=== PATIENT | female | born 1940 | race Caucasian/White ===

== ENCOUNTER 2022-09-20 10:22 | Emergency (ER) | payer MEDICARE, OTHER, SELFPAY ==
[2022-09-20 10:33] VITALS: BP 147/94; PULSE 73; RESP 18; TEMP 36.4; O2SAT 97; BMI 18.7
[2022-09-20 11:15] VITALS: BP 147/94; PULSE 73; RESP 18; TEMP 36.4
--- NOTE | 2022-09-20 11:15 | ED.NURSE ---
Bacitracin, non-adherent dressing, gauze roll applied, per MD request. Pt asking to leave. MD informed and agreeable to d/c. Pt aware Rx Augmentin will be sent electronically to [facility] in [place].
--- NOTE | 2022-09-20 11:15 | ED.NURSE ---
Bacitracin, non-adherent dressing, and gauze roll applied to wound, per MD request. Pt asking to leave.
--- NOTE | 2022-09-20 12:44 | ED.GENADULT ---
HPI - General Adult General Date Seen: 09/20/22 Chief complaint: Skin/Abscess/Foreign Body Stated complaint: Cat bite Time Seen by Provider: 09/20/22 10:45 Source: patient History of Present Illness HPI narrative: Patient is an 82-year-old woman who presents with an injury on her left arm. She is taking care of her sister's cat while she is in the hospital, and the cat was startled last night, attacked her left arm in someway. She isn't entirely sure if it is a bite or scratch, but she has a tear on her left arm and so she has considerable pain there. It is not particularly red or swollen. No other injuries or complaints. Cat is up-to-date on immunizations as far she knows. Related Data Previous Rx's Medication Instructions Recorded amoxicillin 875 mg-potassium 1 tab PO BID #10 tabs 09/20/22 clavulanate 125 mg tablet Allergies Allergy/AdvReac Type Severity Reaction Status Date / Time codeine Allergy Verified 09/20/22 10:32 fentanyl Allergy Verified 09/20/22 10:32 PFSH [facility] Social History Smoking Status: Former smoker Do you use any of these nicotine containing products: None Second hand tobacco smoke exposure: No How often do you have a drink containing alcohol: 2-3 times a week How many standard drinks containing alcohol do you have on a typical day: 1 or 2 How often do you have six or more drinks on one occasion: Never AUDIT-C Alcohol total score: 3 Non-prescribed substance use: denies use service: No Exam Narrative: Exam Narrative: Vital signs reviewed In general, an alert, well-appearing elderly woman. Extremities: Examination of the left arm shows a curvilinear laceration, more of a skin tear on the forearm. Bleeding is controlled. Wound is approximated nicely. No surrounding erythema, drainage, or significant swelling. There is some surrounding bruising. Skin: Warm and dry. Well perfused. Const: Vital Signs, click to edit/add: Vital Signs - 24 hr 09/20/22 10:33 09/20/22 11:15 Temperature 97.5 F L 97.5 F L Pulse Rate [Pulse Oximeter] 73 73 Respiratory Rate 18 18 Blood Pressure [Ri ght Upper Arm] 147/94 H 147/94 H Pulse Oximetry 97 Oxygen Delivery Me thod Room Air Documenting provider has reviewed patient's vital signs: yes Course Course Hospital Course: A dressing was applied for by the nurse. Given the uncertainty as to whether this is a bite or a scratch, I am just going to cover her with Augmentin. Return for worsening signs of infection. Otherwise, anticipate this will heal well. Primary care follow-up for concerns. Vital Signs Vital signs: Initial Vital Signs Temperature 97.5 F L 09/20/22 10:33 Temperature Source Temporal Artery Scan 09/20/22 10:33 Pulse Rate 73 09/20/22 10:33 Pulse Rhythm 09/20/22 10:33 Respiratory Rate 18 09/20/22 10:33 Blood Pressure 147/94 H 09/20/22 10:33 Blood Pressure Mean 111 09/20/22 10:33 Blood Pressure Position Sitting 09/20/22 10:33 Pulse Oximetry 97 09/20/22 10:33 Oxygen Delivery Method 09/20/22 10:33 Vital Signs Temperature 97.5 F L 09/20/22 10:33 Pulse Rate 73 09/20/22 10:33 Respiratory Rate 18 09/20/22 10:33 Blood Pressure 147/94 H 09/20/22 10:33 Pulse Oximetry 97 09/20/22 10:33 Oxygen Delivery Method 09/20/22 10:33 Temperature 97.5 F L 09/20/22 11:15 Pulse Rate 73 09/20/22 11:15 Respiratory Rate 18 09/20/22 11:15 Blood Pressure 147/94 H 09/20/22 11:15 Pulse Oximetry 97 09/20/22 10:33 Oxygen Delivery Method 09/20/22 10:33 Discharge Plan Discharge Clinical Impression: Bite by animal Patient Disposition: Home, Self-Care Condition: Stable Prescriptions: New amoxicillin-pot clavulanate 875-125 mg tablet 1 tab PO BID Qty: 10 0RF Follow Up/Referrals: Alejandro Austin MD [Primary Care Provider] - Stand Alone Forms: MyHealth Info Instructions Discharge Comment: Left at 1115.
== END 2022-09-20 11:29 | disposition home or self-care (01) ==
PROVIDERS: Emergency Provider Emergency Medicine; PCP Family Medicine
DX: S51.812A Laceration without foreign body of left forearm, initial encounter (principal); W55.01XA Bitten by cat, initial encounter
CPT/HCPCS: 99283

== ENCOUNTER 2023-07-25 13:56 | Emergency (ER) | payer MEDICARE, OTHER, SELFPAY ==
[2023-07-25] VITALS (26 sets, daily range): BP systolic 131–156; BP diastolic 70–98; PULSE 54–88; RESP 26; TEMP 36.6; O2SAT 91–96; BMI 17.4
--- NOTE | 2023-07-25 14:06 | ED_ITS ---
HPI - SOB/Dyspnea General Time Seen by Provider: 14:06 Date Seen: 07/25/23 Chief Complaint: Shortness of Breath/Dyspnea Stated Complaint: Difficulty breathing after broken ribs Time Seen by Provider: 07/25/23 13:57 Source: patient, RN notes reviewed and old records reviewed Mode of arrival: ambulatory Limitations: no limitations History of Present Illness HPI Narrative: 82-year-old female who comes in today with shortness of breath. Patient notes shortness of breath for the last 7 weeks after she fell and was seen in outside facility, diagnosed with broken ribs but no admission and no chest tube placed. Patient notes since then she has felt short of breath with cough. She was seen in clinic and was prescribed an inhaler which does help with symptoms but she has had persistent cough and shortness of breath so she came to the emergency department today. No chest pain. No fevers, no lower extremity swelling. 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 Related Data Home Medications Medication Instructions Recorded Confirmed levothyroxine 88 mcg tablet 88 mcg PO DAILY 07/25/23 07/25/23 Previous Rx's Medication Instructions Recorded amoxicillin 875 mg-potassium 1 tab PO BID #10 tabs 09/20/22 clavulanate 125 mg tablet benzonatate 200 mg capsule 200 mg PO TID PRN cough #14 caps 07/25/23 prednisone 20 mg tablet 20 mg PO BID #10 tabs 07/25/23 Allergies Allergy/AdvReac Type Severity Reaction Status Date / Time codeine Allergy Verified 09/20/22 10:32 fentanyl Allergy Verified 09/20/22 10:32 eggs Allergy Uncoded 07/25/23 14:00 Review of Systems Status of ROS: Reports: 10 or more systems reviewed and unremarkable except as noted in History and below [facility] Social History Smoking Status: Former smoker Do you use any of these nicotine containing products: None Second hand tobacco smoke exposure: No How often do you have a drink containing alcohol: 2-3 times a week How many standard drinks containing alcohol do you have on a typical day: 1 or 2 How often do you have six or more drinks on one occasion: Never AUDIT-C Alcohol total score: 3 Non-prescribed substance use: denies use service: No Exam Narrative: Exam Narrative: General: Well-developed and well-nourished, no acute distress Head: Atraumatic and normocephalic Eyes: Pupils are equal reactive, extraocular motions intact, conjunctiva clear ENT: External nose and ears are normal, posterior pharynx without erythema or exudate Neck: No midline cervical tenderness, full spontaneous range of motion the neck, trachea midline, no adenopathy Heart: Regular rate and rhythm no murmurs or thrills Lungs: Trace bilateral crackles with expiratory wheezes on the left Abdomen: Soft, nontender, nondistended with active bowel sounds Musculoskeletal: No tenderness, deformity, or edema Neurologic: Awake, alert, and oriented x3, no gross focal neurologic deficits, cranial nerves intact as tested Psych: Mood and affect are appropriate Skin: No rashes Const: Vital Signs, click to edit/add: Vital Signs - 24 hr 07/25/23 14:01 07/25/23 14:18 07/25/23 14:30 Temperature 98 F Pulse Rate 66 88 Pulse Rate [Pulse Oximeter] 62 Respiratory Rate 26 H Blood Pressure Blood Pressure [Ri ght Upper Arm] 139/72 Pulse Oximetry 94 93 94 Oxygen Delivery Me thod Room Air 07/25/23 14:32 07/25/23 14:45 07/25/23 15:00 Temperature Pulse Rate 54 L 69 Pulse Rate [Pulse Oximeter] Respiratory Rate Blood Pressure 156/98 H Blood Pressure [Ri ght Upper Arm] Pulse Oximetry 94 93 94 Oxygen Delivery Me thod 07/25/23 15:02 07/25/23 15:03 07/25/23 15:15 Temperature Pulse Rate 61 76 69 Pulse Rate [Pulse Oximeter] Respiratory Rate Blood Pressure 146/80 H Blood Pressure [Ri ght Upper Arm] Pulse Oximetry 95 94 94 Oxygen Delivery Me thod 07/25/23 15:30 07/25/23 15:32 07/25/23 15:45 Temperature Pulse Rate 70 74 69 Pulse Rate [Pulse Oximeter] Respiratory Rate Blood Pressure 138/79 Blood Pressure [Ri ght Upper Arm] Pulse Oximetry 93 93 93 Oxygen Delivery Me thod 07/25/23 16:00 07/25/23 16:03 07/25/23 16:04 Temperature Pulse Rate 79 68 78 Pulse Rate [Pulse Oximeter] Respiratory Rate Blood Pressure 155/93 H Blood Pressure [Ri ght Upper Arm] Pulse Oximetry 92 94 96 Oxygen Delivery Me thod 07/25/23 16:17 07/25/23 16:31 07/25/23 16:33 Temperature Pulse Rate 71 88 79 Pulse Rate [Pulse Oximeter] Respiratory Rate Blood Pressure 131/75 Blood Pressure [Ri ght Upper Arm] Pulse Oximetry 92 96 95 Oxygen Delivery Me thod 07/25/23 16:34 07/25/23 16:45 07/25/23 17:00 Temperature Pulse Rate 83 84 87 Pulse Rate [Pulse Oximeter] Respiratory Rate Blood Pressure Blood Pressure [Ri ght Upper Arm] Pulse Oximetry 96 94 95 Oxygen Delivery Me thod 07/25/23 17:04 07/25/23 17:05 07/25/23 17:15 Temperature Pulse Rate 85 82 84 Pulse Rate [Pulse Oximeter] Respiratory Rate Blood Pressure 155/70 H Blood Pressure [Ri ght Upper Arm] Pulse Oximetry 92 93 92 Oxygen Delivery Me thod 07/25/23 17:30 07/25/23 17:33 Temperature Pulse Rate 71 Pulse Rate [Pulse Oximeter] Respiratory Rate Blood Pressure 142/98 H Blood Pressure [Ri ght Upper Arm] Pulse Oximetry 91 Oxygen Delivery Me thod Course Course ED Course: Patient seen examined, prior records reviewed. Patient presents today with shortness of breath and cough that she has had since sustained some broken ribs. On exam here she speaks in full sentences, no respiratory distress. Breath sounds are present in both lungs, some wheezes more prominent on the left as well as some trace crackles in lungs bilaterally. Concern for possible pneumothorax or pleural effusion given history of trauma, given ongoing symptoms consider pulmonary embolism as well. Empyema is less likely as patient is afebrile and has no chest pain. Labs and CT PE study are ordered. Reevaluation(s) Time of Reevaluation #1: 16:12 Reevaluation #1: Labs independently interpreted by me with normal white blood cell count, normal hemoglobin reassuring basic panel, BNP and bicarbonate are pending. CT chest independently interpreted by me does not demonstrate any central pulmonary emboli, no infiltrate or effusion, old rib fractures noted on the left. Patient is stable for discharge with continued nebulizer treatment and also be started on prednisone. Vital Signs Vital signs: Initial Vital Signs Temperature 98 F 07/25/23 14:01 Temperature Source Temporal Artery Scan 07/25/23 14:01 Pulse Rate 62 07/25/23 14:01 Respiratory Rate 26 H 07/25/23 14:01 Blood Pressure 139/72 07/25/23 14:01 Blood Pressure Mean 94 07/25/23 14:01 Blood Pressure Position Supine 07/25/23 14:01 Pulse Oximetry 94 07/25/23 14:01 Oxygen Delivery Method Room Air 07/25/23 14:01 Vital Signs Temperature 98 F 07/25/23 14:01 Pulse Rate 62 07/25/23 14:01 Respiratory Rate 26 H 07/25/23 14:01 Blood Pressure 139/72 07/25/23 14:01 Pulse Oximetry 94 07/25/23 14:01 Oxygen Delivery Method Room Air 07/25/23 14:01 Temperature 98 F 07/25/23 14:01 Pulse Rate 71 07/25/23 17:30 Respiratory Rate 26 H 07/25/23 14:01 Blood Pressure 142/98 H 07/25/23 17:33 Pulse Oximetry 91 07/25/23 17:30 Oxygen Delivery Method Room Air 07/25/23 14:01 MDM - SOB/Dyspnea Lab Data Labs: Lab Results 07/25/23 Range/Units 14:24 WBC 8.33 (4.50-11.00) K/uL RBC 5.41 H (4.00-5.20) m/uL Hgb 15.0 (12.0-16.0) gm/dL Hct 46.1 (33.0-51.0) % MCV 85 (80-100) fL MCH 28 (26-34) pg MCHC 33 (32-36) gm/dL RDW Coeff of Heydi 14.5 (11.5-15.5) % Plt Count 275 (140-440) K/uL Neut % (Auto) 56.3 (42.0-72.0) % Lymph % (Auto) 26.9 (20-44) % [place] % (Auto) 10.8 (0.0-11.0) % Eos % (Auto) 5.3 (0.0-7.0) % Baso % (Auto) 0.6 (0.0-3.0) % Neut # (Auto) 4.69 (1.7-7.0) K/uL Lymph # (Auto) 2.24 (0.90-2.90) K/uL [place] # (Auto) 0.90 (0.00-0.90) K/UL Eos # (Auto) 0.44 (0.00-0.50) K/uL Baso # (Auto) 0.05 (0.00-0.30) K/uL Abs Immat Gran (auto) 0.01 (0.00-0.30) K/uL Imm/Tot Granulo (auto) 0.1 % Sodium 141 (135-149) mmol/L Potassium 3.3 L (3.6-5.1) mmol/L Chloride 104 (96-114) mmol/L Carbon Dioxide 25 (20-32) mmol/L Anion Gap 12 (7-15) mEq/L BUN 10 (7-30) mg/dL Creatinine 0.6 (0.5-1.5) mg/dL Estimated Creat Clear 33.54 Estimated GFR 90 ml/min Glucose 107 (60-115) mg/dL Calcium 7.9 L (8.4-10.6) mg/dL Magnesium 1.8 (1.5-2.6) mg/dL NT-Pro-B Natriuret Pep 513 pg/mL Discharge Plan Discharge Clinical Impression: Acute dyspnea, Cough Patient Disposition: Home, Self-Care Condition: Stable Instructions: How to Use a Metered-Dose Inhaler (DC), Wheezing (ED) Additional Instructions: Use albuterol every 4 hours as needed for wheezing or shortness of breath Take prednisone as prescribed Take Tessalon Perles as needed for cough Follow-up with your regular doctor next week Activity Level: No Restrictions Discharge Diet: Regular Prescriptions: New prednisone 20 mg tablet 20 mg PO BID Qty: 10 0RF benzonatate 200 mg capsule 200 mg PO TID PRN (Reason: cough) Qty: 14 0RF No Action amoxicillin-pot clavulanate 875-125 mg tablet 1 tab PO BID Qty: 10 0RF levothyroxine 88 mcg tablet 88 mcg PO DAILY Follow Up/Referrals: Alejandro Austin MD [Primary Care Provider] - Stand Alone Forms: MyHealth Info Instructions
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
[2023-07-25 14:37] LABS: Basophils Absolute Auto 0.05 K/uL (0.00-0.30); Basophils Percent Auto 0.6 % (0.0-3.0); Eosinophils Absolute Auto 0.44 K/uL (0.00-0.50); Eosinophils Percent Auto 5.3 % (0.0-7.0); Hematocrit 46.1 % (33.0-51.0); Immature Granulocytes Abs Auto 0.01 K/uL (0.00-0.30); Immature Granulocytes Pct Auto 0.1 %; Lymphocytes Absolute Auto 2.24 K/uL (0.90-2.90); Lymphocytes Percent Auto 26.9 % (20-44); Mean Corpuscular HGB Conc 33 gm/dL (32-36); Mean Corpuscular Hemoglobin 28 pg (26-34); Mean Corpuscular Volume 85 fL (80-100); Monocytes Percent Auto 10.8 % (0.0-11.0); Neutrophils Absolute Auto 4.69 K/uL (1.7-7.0); Neutrophils Percent Auto 56.3 % (42.0-72.0); Platelet Count* 275 K/uL (140-440); RDW Coefficient of Variation % 14.5 % (11.5-15.5); Red Blood Count 5.41 m/uL (4.00-5.20); White Blood Count* 8.33 K/uL (4.50-11.00)
[2023-07-25 14:39] LABS: Slide Review Reflex No
[2023-07-25 14:52] LABS: Chloride* 104 mmol/L (96-114); Potassium* 3.3 mmol/L (3.6-5.1); Sodium* 141 mmol/L (135-149)
[2023-07-25 14:55] LABS: Blood Urea Nitrogen* 10 mg/dL (7-30); Calcium* 7.9 mg/dL (8.4-10.6); Creatinine* 0.6 mg/dL (0.5-1.5); Est. Creatinine Clearance* 33.54; Estimated Glomerular Filt Rate 90 ml/min; Glucose* 107 mg/dL (60-115); Magnesium* 1.8 mg/dL (1.5-2.6)
[2023-07-25] MEDS: IPRAT-ALBUT 0.5-2.5 MG/3 ML NEB 1 NEB IH (15:45)
[2023-07-25 16:32] LABS: NT Pro B Type NatriureticPept* 513 pg/mL
[2023-07-25] MEDS: METHYLPREDNISOLONE SOD SUCC 62.5 MG/ML (125) 125 MG IVP (16:44)
[2023-07-25 17:15] LABS: Anion Gap 12 mEq/L (7-15); Carbon Dioxide* 25 mmol/L (20-32)
--- NOTE | 2023-07-26 11:03 | ED.NURSE ---
Pt stated her medications did not go to her pharmacy yesterday. Per pt request, meds tesslon pearls and prednisone called to [facility] in [place].
== END 2023-07-25 17:55 | disposition home or self-care (01) ==
PROVIDERS: Emergency Provider Family Medicine; PCP Family Medicine
DX: R06.00 Dyspnea, unspecified (principal); R05.9 Cough, unspecified
CPT/HCPCS: 36415; 71275; 80048; 83735; 83880; 85025; 93005; 94640; 96374; 99284; 99285; J2930; Q9967

== ENCOUNTER 2023-08-13 11:50 | Outpatient (CLI) | payer MEDICARE, OTHER, SELFPAY | END 2023-08-13 11:51 | disposition home or self-care (01) | PROVIDERS: PCP Family Medicine; Visit Provider Family Medicine | DX: Z00.00 Encounter for general adult medical examination without abnormal findings (principal); I10 Essential (primary) hypertension; R53.83 Other fatigue; E55.9 Vitamin D deficiency, unspecified; Z85.850 Personal history of malignant neoplasm of thyroid; Z86.39 Personal history of other endocrine, nutritional and metabolic disease; Z13.6 Encounter for screening for cardiovascular disorders | CPT/HCPCS: 80053; 80061; 82248; 82306; 84443 ==

== ENCOUNTER 2023-09-01 18:43 | Emergency (ER) | payer MEDICARE, OTHER, SELFPAY ==
[2023-09-01 18:49] VITALS: BP 135/73; PULSE 70; RESP 18; TEMP 36.7; O2SAT 93; BMI 18.1
--- NOTE | 2023-09-01 19:01 | ED_ITS ---
HPI - SOB/Dyspnea General Chief Complaint: Shortness of Breath/Dyspnea Stated Complaint: shortness of breath, both arms went numb Time Seen by Provider: 09/01/23 19:01 Source: patient, RN notes reviewed and old records reviewed Mode of arrival: ambulatory Limitations: no limitations History of Present Illness HPI Narrative: Adela is a very pleasant 83-year-old female with history of COPD, breast cancer, thyroid cancer as well as hypothyroidism who comes to the emergency room for evaluation regarding arm numbness and chest pain. Patient notes that 2 days ago she was sitting and had the onset of many minutes a bilateral arm numbness and was unable to lift her arms. This was not associated with speech difficulty chest pain or any other abnormality. This gradually resolved. However, tonight this occurred again and lasted about 45 seconds. Chest pain followed and patient noted that she has been dealing with chronic shortness of breath since she had rib fractures in June. She notes no unusual fever or cough or production. She does feels like she is short of breath. She is not on any blood thinners and denies any calf tenderness. She has not had heart problems in the past. She has not had a history of stroke. She does not take any blood thinners. At this time all of her symptoms have resolved. Related Data Previous Rx's Medication Instructions Recorded levothyroxine 88 mcg tablet 88 mcg PO DAILY #90 tabs 08/13/23 cholecalciferol (vitamin D3) 125 125 mcg PO QDAY #90 caps 08/14/23 mcg (5,000 unit) capsule albuterol sulfate 2.5 mg/3 mL 2.5 mg (3 mL) inhalation Q8H PRN 08/22/23 (0.083 %) solution for nebulization wheezing #90 mL Allergies Allergy/AdvReac Type Severity Reaction Status Date / Time cefdinir Allergy Severe Angioedema Verified 08/13/23 11:26 fentanyl Allergy Severe Anaphylaxis Verified 08/13/23 11:26 codeine Allergy Unknown Dizziness Verified 08/13/23 11:26 Egg Derived Allergy Unknown Hives Verified 08/13/23 11:26 Review of Systems Status of ROS: Reports: 10 or more systems reviewed and unremarkable except as noted in History and below Const: Denies: fever or chills ENMT: Reports: neck pain (Chronic and not worsening.); Denies: throat swelling or hoarseness Cardio: Reports: chest pain and shortness of breath with exertion; Denies: palpitations, edema, swelling of feet/ankles or lightheadedness Resp: Reports: shortness of breath; Denies: cough or wheezing GI: Denies: abdominal pain, nausea, vomiting or diarrhea : Denies: painful urination Musculo: Reports: neck pain (Chronic and not worsening.); Denies: back pain, extremity pain or extremity swelling Integ/Breast: Denies: rash Neuro: Reports: numbness in extremities (Transient) and weakness in extremities (Transient); Denies: headache Allergy/Immuno: Denies: throat swelling or wheezing PFSH PFSH Medical History COPD with chronic bronchitis ?J44.89 - Other specified chronic obstructive pulmonary disease (ICD-10) Vitamin D deficiency ?E55.9 - Vitamin D deficiency, unspecified (ICD-10) Cigarette smoker ?F17.210 - Nicotine dependence, cigarettes, uncomplicated (ICD-10) Polyarthralgia ?M25.50 - Pain in unspecified joint (ICD-10) Chronic left shoulder pain ?M25.512 - Pain in left shoulder (ICD-10) ?G89.29 - Other chronic pain (ICD-10) History of breast cancer (2000) ?Z85.3 - Personal history of malignant neoplasm of breast (ICD-10) History of gout ?Z87.39 - Personal history of other diseases of the musculoskeletal system and connective tissue (ICD-10) Hypertension ?I10 - Essential (primary) hypertension (ICD-10) Anxiety ?F41.9 - Anxiety disorder, unspecified (ICD-10) History of thyroid cancer (~2018) ?Z85.850 - Personal history of malignant neoplasm of thyroid (ICD-10) Protein calorie malnutrition (~08/13/23) ?E46 - Unspecified protein-calorie malnutrition (ICD-10) Sensorineural hearing loss ?H90.5 - Unspecified sensorineural hearing loss (ICD-10) History of fall ?Z91.81 - History of falling (ICD-10) Surgical History History of total thyroidectomy (01/20/18) ?E89.0 - Postprocedural hypothyroidism (ICD-10) History of lumpectomy (2000) ?Z98.890 - Other specified postprocedural states (ICD-10) Family History Other No family history of breast cancer Social History Narrative: 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,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, 3 adult 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 Continues to smoke few cigarettes a day, over 40 pack years Drinks 4 alcoholic drinks a week No formal exercise but active lifestyle Smoking Status: Former smoker Do you use any of these nicotine containing products: None Second hand tobacco smoke exposure: No How often do you have a drink containing alcohol: 2-3 times a week How many standard drinks containing alcohol do you have on a typical day: 1 or 2 How often do you have six or more drinks on one occasion: Never AUDIT-C Alcohol total score: 3 Non-prescribed substance use: denies use Little interest or pleasure in doing things: not at all Feeling down, depressed, or hopeless: not at all service: No Exam Narrative: Exam Narrative: Adela is alert and oriented. She is not in any acute distress at this time. External ears eyes nose clear. Head is atraumatic. Heart with a irregular rhythm that is regular. Lungs with crackles in the bases. They do partially clear with deep inspiration. Moving all extremities. Vision is intact. NIH SS 0 Upper extremity strength and motor intact. DTR 1+ on the right 2+ on the left. I did is Spurling's maneuver and patient has no increased arms symptoms bilaterally. Const: Vital Signs, click to edit/add: Vital Signs - 24 hr 09/01/23 18:49 09/01/23 23:54 Temperature 98.1 F Pulse Rate [Pulse Oximeter] 70 76 Respiratory Rate 18 16 Blood Pressure [Le ft Upper Arm] 135/73 102/78 Pulse Oximetry 93 99 Oxygen Delivery Me thod Room Air Room Air Documenting provider has reviewed patient's vital signs: yes Course Course ED Course: At this time differential diagnosis includes but is not limited to TIA, atrial fibrillation, pneumothorax, acute coronary event, COPD exacerbation. Will place IV and do CT of the head, head and neck angio as well as chest x-ray. EKG, troponin and other blood work to include CBC, comprehensive panel, CRP and D-di maida. Patient realizes that this will be an extensive workup and is willing to stay. Reevaluation(s) Reevaluation #1: Patient while sitting in room 4 does not wish to moved to a room and laid down. She states that her shortness of breath is much better. Initial troponin is negative. EKG shows a sinus arrhythmia at a rate of 60. No acute ST or T-wave changes are noted. I have ordered 2nd set of cardiac enzymes. Vital Signs Vital signs: Initial Vital Signs Temperature 98.1 F 09/01/23 18:49 Temperature Source Temporal Artery Scan 09/01/23 18:49 Pulse Rate 70 09/01/23 18:49 Pulse Rhythm Regular 09/01/23 18:49 Respiratory Rate 18 09/01/23 18:49 Blood Pressure 135/73 09/01/23 18:49 Blood Pressure Mean 93 09/01/23 18:49 Blood Pressure Position Sitting 09/01/23 18:49 Pulse Oximetry 93 09/01/23 18:49 Oxygen Delivery Method Room Air 09/01/23 18:49 Vital Signs Temperature 98.1 F 09/01/23 18:49 Pulse Rate 70 09/01/23 18:49 Respiratory Rate 18 09/01/23 18:49 Blood Pressure 135/73 09/01/23 18:49 Pulse Oximetry 93 09/01/23 18:49 Oxygen Delivery Method Room Air 09/01/23 18:49 Temperature 98.1 F 09/01/23 18:49 Pulse Rate 76 09/01/23 23:54 Respiratory Rate 16 09/01/23 23:54 Blood Pressure 102/78 09/01/23 23:54 Pulse Oximetry 99 09/01/23 23:54 Oxygen Delivery Method Room Air 09/01/23 23:54 Medications Administered Medications: Discontinued Medications Generic Name Dose Route Start Last Admin Trade Name Freq PRN Reason Stop Dose Admin Aspirin 324 mg 09/01/23 19:15 09/01/23 22:32 Aspirin 81 Mg Tab.Chew PO 09/01/23 19:16 324 mg ONCE ONE Administration MDM - SOB/Dyspnea MDM Narrative Medical decision making narrative: 1. Bilateral arm numbness-I did speak with Neurology and with reassuring head CT, head and neck angio my neurological consult physician did not feel that this was TIA. Patient has been given aspirin 324 mg p.o.. 2. Chest pain-resolved upon arrival. Troponin negative x2. EKG initially abnormal but was found subsequent rhythm strip shows sinus rhythm. I did speak to Cardiology and they were able to view this. They do suggest outpatient echocardiogram, follow-up with Cardiology and potential CTA. Patient has been pain-free in the emergency room. 3. Chronic shortness of breath D-dimer is negative and chest x-ray reassuring. Oxygen levels are appropriate as well. No evidence of fluid retention. Recommend follow-up with primary MD as this is likely COPD. It does not appear to be worsening lately. 4. Disposition-home at this time. Return for any worsening symptoms. Continue baby aspirin 81 mg daily. Prior to discharge patient notes she is suddenly sneezing and has had some coughing. Oxygen levels are 99% and she is not tachycardic. Will triple swab her prior to departure. She does not have to wait for those results. Medical Records Attestation: I reviewed the patient's medical records. Lab Data Attestation: I reviewed the patient's lab results. Labs: Lab Results 09/01/23 09/01/23 Range/Units 19:20 19:27 WBC 7.32 (4.50-11.00) K/uL RBC 5.06 (4.00-5.20) m/uL Hgb 14.2 (12.0-16.0) gm/dL Hct 42.6 (33.0-51.0) % MCV 84 (80-100) fL MCH 28 (26-34) pg MCHC 33 (32-36) gm/dL RDW Coeff of Heydi 13.6 (11.5-15.5) % Plt Count 306 (140-440) K/uL Neut % (Auto) 55.7 (42.0-72.0) % Lymph % (Auto) 27.6 (20-44) % Kent % (Auto) 9.8 (0.0-11.0) % Eos % (Auto) 6.0 (0.0-7.0) % Baso % (Auto) 0.5 (0.0-3.0) % Neut # (Auto) 4.07 (1.7-7.0) K/uL Lymph # (Auto) 2.02 (0.90-2.90) K/uL Kent # (Auto) 0.70 (0.00-0.90) K/UL Eos # (Auto) 0.44 (0.00-0.50) K/uL Baso # (Auto) 0.04 (0.00-0.30) K/uL Abs Immat Gran (auto) 0.03 (0.00-0.30) K/uL Imm/Tot Granulo (auto) 0.4 % D-Dimer Quant (PE/DVT) < 0.27 (0.00-0.50) ug/ml Sodium 137 (135-149) mmol/L Potassium 3.8 (3.6-5.1) mmol/L Chloride 100 (96-114) mmol/L Carbon Dioxide 26 (20-32) mmol/L Anion Gap 11 (7-15) mEq/L BUN 10 (7-30) mg/dL Creatinine 0.6 (0.5-1.5) mg/dL Estimated Creat Clear 34.19 Estimated GFR 89 ml/min Glucose 110 (60-115) mg/dL Calcium 8.4 (8.4-10.6) mg/dL Total Bilirubin 1.4 (0.1-1.5) mg/dL AST 31 (12-35) U/L ALT 26 (4-35) U/L Alkaline Phosphatase 64 (40-150) U/L C-Reactive Protein 0.8 (0.5-1.0) mg/dL Total Protein 7.2 (6.0-8.3) g/dL Albumin 4.5 (3.3-5.0) g/dL POC Troponin I 0.01 (0.01-0.04) ng/ml Imaging Data CT scan - head: Attestation: I have reviewed the pertinent imaging results. My impression: Chronic changes Radiologist's impression: eriventricular areas of low attenuation, likely due to chronic small vessel ischemic changes. Generalized volume loss. Atherosclerosis. No intracranial hemorrhage. No discrete mass or mass effect. There is no midline shift. The basilar cisterns are patent. No hydrocephalus. The kasper-white matter interface is otherwise preserved. No acute osseous abnormality. No extracalvarial soft tissue abnormality. The mastoid air cells are clear. Partial opacification of the right maxillary sinus. The visualized portions of the orbits and globes are unremarkable. IMPRESSION: No acute intracranial process per unenhanced head CT. Head and neck angio: Attestation: I have reviewed the pertinent imaging results. Radiologist's impression: FINDINGS: There is no significant carotid artery stenosis or dissection. There is no significant vertebral artery stenosis or dissection. The soft tissues of the neck are within normal limits. Advanced degenerative changes are noted in the cervical spine. IMPRESSION: No significant carotid or vertebral artery stenosis or dissection. Chest x-ray: Attestation: I have reviewed the pertinent imaging results. My impression: No obvious infiltrates or pneumothoraces Radiologist's impression: Mild fibrotic changes. Postop changes to the right axilla. IMPRESSION: No acute findings. ECG Data Attestation: I personally reviewed and interpreted this ECG as follows: ECG interpretation date: 09/01/23 ECG interpretation time: 21:15 Interpretation: EKG by my review shows no evidence of acute ST or T-wave changes. Heart rate is 60. Patient has a regularly irregular rhythm. There are 2 systole is with the 2nd T-wave being a bifid. I did speak with Cardiology in regards to this. I subsequent rhythm strip shows normal sinus rhythm with totally normal morphology and no pauses. Discharge Plan Discharge Clinical Impression: Atypical chest pain, Bilateral arm weakness, Abnormal ECG Patient Disposition: Home, Self-Care Condition: Improved Additional Instructions: The neurologist does not think which you experience tonight was a TIA. However, I do not have an explanation for your arm weakness. It may be related to something going on with your heart. You have tested negative for heart attack tonight. Your 1st EKG was not entirely normal. Subsequently your heart is now in a normal rhythm. 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 They would like you to have an echocardiogram scheduled with follow-up with Cardiology. They may do a special test called a CTA of your heart at a later time. They would like you to continue a baby aspirin every day 81 mg. Return to the emergency room as needed. Prescriptions: No Action levothyroxine 88 mcg tablet 88 mcg PO DAILY Qty: 90 3RF cholecalciferol (vitamin D3) 125 mcg (5,000 unit) capsule 125 mcg PO QDAY Qty: 90 1RF albuterol sulfate 2.5 mg /3 mL (0.083 %) solution for nebulization 2.5 mg inhalation Q8H PRN (Reason: wheezing) Qty: 90 2RF Follow Up/Referrals: Kinsey Zamudio MD [Primary Care Provider] - Stand Alone Forms: [facility] [employer] Info Instructions
--- NOTE | 2023-09-01 19:13 | CRLHL7_ITS ---
For Patients: As a result of the Century Cures Act, medical imaging exams and procedure reports are released immediately into your electronic medical record. You may view this report before your referring provider. If you have questions, please contact your health care provider. INDICATION: .SOB, bilateral arm numbness, 2 episodes over the last 2 days TECHNIQUE: Head CT without contrast. COMPARISON: None. FINDINGS: Periventricular areas of low attenuation, likely due to chronic small vessel ischemic changes. Generalized volume loss. Atherosclerosis. No intracranial hemorrhage. No discrete mass or mass effect. There is no midline shift. The basilar cisterns are patent. No hydrocephalus. The kasper-white matter interface is otherwise preserved. No acute osseous abnormality. No extracalvarial soft tissue abnormality. The mastoid air cells are clear. Partial opacification of the right maxillary sinus. The visualized portions of the orbits and globes are unremarkable. IMPRESSION: No acute intracranial process per unenhanced head CT. Please note that all CT scans at this facility use dose modulation, iterative reconstruction, and/or weight-based dosing when appropriate to reduce radiation dose to as low as reasonably achievable. Dictated by Dimitri Marroquin MD @ 09/01/2023 9:07:04 PM (Electronically Signed)
--- NOTE | 2023-09-01 19:13 | CRLHL7_ITS ---
For Patients: As a result of the Cures Act, medical imaging exams and procedure reports are released immediately into your electronic medical record. You may view this report before your referring provider. If you have questions, please contact your health care provider. INDICATION: Shortness of breath TECHNIQUE: Chest 1 view COMPARISON: None FINDINGS: Mild fibrotic changes. Postop changes to the right axilla. IMPRESSION: No acute findings. Dictated by Dimitri Desai MD @ 09/01/2023 9:38:09 PM (Electronically Signed)
--- NOTE | 2023-09-01 19:13 | CRLHL7_ITS ---
For Patients: As a result of the Century Cures Act, medical imaging exams and procedure reports are released immediately into your electronic medical record. You may view this report before your referring provider. If you have questions, please contact your health care provider. INDICATION: Bilateral arm numbness. TECHNIQUE: CTA neck with contrast bolus tracking, 3D angiographic rendering using maximum intensity projection (MIP) and images permanently archived. FINDINGS: There is no significant carotid artery stenosis or dissection. There is no significant vertebral artery stenosis or dissection. The soft tissues of the neck are within normal limits. Advanced degenerative changes are noted in the cervical spine. IMPRESSION: No significant carotid or vertebral artery stenosis or dissection. Please note that all CT scans at this facility use dose modulation, iterative reconstruction, and/or weight-based dosing when appropriate to reduce radiation dose to as low as reasonably achievable. Dictated by Alexander Clement MD @ 09/01/2023 10:19:43 PM (Electronically Signed)
--- NOTE | 2023-09-01 19:13 | CRLHL7_ITS ---
For Patients: As a result of the Century Cures Act, medical imaging exams and procedure reports are released immediately into your electronic medical record. You may view this report before your referring provider. If you have questions, please contact your health care provider. INDICATION: Bilateral arm numbness. TECHNIQUE: CTA head with contrast bolus tracking, 3D angiographic rendering using maximum intensity projection (MIP) and images permanently archived. FINDINGS: There is scattered intracranial atherosclerotic disease. There is normal opacification of the intracranial vasculature. There is no large vessel occlusion. No aneurysm is identified. IMPRESSION: No large vessel occlusion. Please note that all CT scans at this facility use dose modulation, iterative reconstruction, and/or weight-based dosing when appropriate to reduce radiation dose to as low as reasonably achievable. Dictated by Alexander Clement MD @ 09/01/2023 10:18:20 PM (Electronically Signed)
[2023-09-01 19:37] LABS: Troponin, Point-of-Care* 0.01 ng/ml (0.01-0.04)
[2023-09-01 19:39] LABS: Basophils Absolute Auto 0.04 K/uL (0.00-0.30); Basophils Percent Auto 0.5 % (0.0-3.0); Eosinophils Absolute Auto 0.44 K/uL (0.00-0.50); Hematocrit 42.6 % (33.0-51.0); Hemoglobin* 14.2 gm/dL (12.0-16.0); Immature Granulocytes Abs Auto 0.03 K/uL (0.00-0.30); Immature Granulocytes Pct Auto 0.4 %; Lymphocytes Absolute Auto 2.02 K/uL (0.90-2.90); Lymphocytes Percent Auto 27.6 % (20-44); Mean Corpuscular HGB Conc 33 gm/dL (32-36); Mean Corpuscular Hemoglobin 28 pg (26-34); Mean Corpuscular Volume 84 fL (80-100); Monocytes Percent Auto 9.8 % (0.0-11.0); Neutrophils Absolute Auto 4.07 K/uL (1.7-7.0); Neutrophils Percent Auto 55.7 % (42.0-72.0); Platelet Count* 306 K/uL (140-440); RDW Coefficient of Variation % 13.6 % (11.5-15.5); Red Blood Count 5.06 m/uL (4.00-5.20); White Blood Count* 7.32 K/uL (4.50-11.00)
[2023-09-01 19:44] LABS: Albumin* 4.5 g/dL (3.3-5.0)
[2023-09-01 19:45] LABS: Chloride* 100 mmol/L (96-114); Potassium* 3.8 mmol/L (3.6-5.1); Sodium* 137 mmol/L (135-149)
[2023-09-01 19:47] LABS: Bilirubin Total* 1.4 mg/dL (0.1-1.5); Creatinine* 0.6 mg/dL (0.5-1.5); Est. Creatinine Clearance* 34.19; Estimated Glomerular Filt Rate 89 ml/min; Slide Review Reflex No
[2023-09-01 19:48] LABS: Alanine Aminotransferase* 26 U/L (4-35); Alkaline Phosphatase* 64 U/L (40-150); Anion Gap 11 mEq/L (7-15); Aspartate Amino Transferase* 31 U/L (12-35); Blood Urea Nitrogen* 10 mg/dL (7-30); Calcium* 8.4 mg/dL (8.4-10.6); Carbon Dioxide* 26 mmol/L (20-32); Glucose* 110 mg/dL (60-115); Total Protein* 7.2 g/dL (6.0-8.3)
[2023-09-01 19:51] LABS: C Reactive Protein* 0.8 mg/dL (0.5-1.0)
[2023-09-01 19:52] LABS: D Dimer Quantitative* < 0.27 ug/ml (0.00-0.50)
[2023-09-01] MEDS: ASPIRIN 81 MG TAB.CHEW 324 MG PO (22:32)
[2023-09-01 23:54] VITALS: BP 102/78; PULSE 76; RESP 16; O2SAT 99
--- NOTE | 2023-09-02 00:22 | PC.NURSE ---
patient DC ambulatory and alert. no questions about DC instructions.
[2023-09-02 01:07] LABS: PCR FLU A Negative PCR FLU A (Negative); PCR FLU B Negative PCR FLU B (Negative); PCR RSV Negative PCR RSV (Negative); SARS PCR* Negative SARS-CoV-2 (Negative)
== END 2023-09-02 00:23 | disposition home or self-care (01) ==
PROVIDERS: Emergency Provider Family Medicine; PCP Family Medicine
DX: R07.89 Other chest pain (principal); R53.1 Weakness; R94.31 Abnormal electrocardiogram [ECG] [EKG]
CPT/HCPCS: 36415; 70450; 70496; 70498; 71045; 80053; 84484; 85025; 85379; 86140; 87631; 99284; 99285; A9270; Q9967

== ENCOUNTER 2023-09-18 12:54 | Outpatient (CLI) | payer MEDICARE, OTHER, SELFPAY ==
--- NOTE | 2023-09-18 13:00 | CRLHL7_ITS ---
For Patients: As a result of the Century Cures Act, medical imaging exams and procedure reports are released immediately into your electronic medical record. You may view this report before your referring provider. If you have questions, please contact your health care provider. DXA BONE MINERAL DENSITY STUDY Reason for exam: Asymptomatic menopausal state. Current height (in): 66.0. Weight (lb): 112.0. Menopause age: 52. Ethnicity: White. 1. Have you had a previous hip or vertebral fracture? No. 2. Have you had any fractures during your adult life which did not result from significant trauma (e.g., auto accident)? Yes. 3. Did either of your parents have a hip fracture? No. 4. Do you smoke? No. 5. Have you ever taken Glucocorticoids? No. 6. Do you have rheumatoid arthritis? No. 7. Do you have secondary osteoporosis? No. 8. Do you drink 3 or more alcoholic drinks per day? Yes. 9. Are you being treated for osteoporosis? No. 10. Have you ever taken any of the following medications: Actonel, Evista, Fosamax, Miacalcin, Reclast, Boniva, Forteo, HRT (i.e. estrogen/hormone therapy), Protelos, Prolia, Vitamin D, Calcium, other ??? please specify. ANSWER: Yes, vitamin D, calcium. 11. Do you have any of the following medical conditions: Anorexia or bulimia, asthma or emphysema, end stage renal disease, hyperparathyroidism, any seizure disorders, cancer, inflammatory bowel diseases, hysterectomy, other ??? please specify. ANSWER: Yes, asthma or emphysema. 12. What was your maximum height (inches)? 66.6. 13. Do you perform weight bearing exercise regularly? No. 14. Do you regularly consume dairy products? Yes. 15. Do you drink caffeinated beverages? No. 16. At what age did your period start? 15. 17. Are you premenopausal? No. 18. How many full term pregnancies have you had? 0. 19. Have you ever missed your period for more than 6 months in a row (not including or menopause)? No. TECHNIQUE: Bone mineral density study was performed using the [employer]. FINDINGS: The results of the study expressed as bone mineral density (BMD) are as follows: Lumbar spine L1 to L3: BMD: 0.836 g/cm2. T-score: -1.7. Z-score: 1.1. Neck Left: BMD: 0.618 g/cm2. T-score: -2.1. Z-score: 0.4. Right: BMD: 0.688 g/cm2. T-score: -1.4. Z-score: 1.0. Total Left: BMD: 0.653 g/cm2. T-score: -2.4. Z-score: -0.1. Right: BMD: 0.674 g/cm2. T-score: -2.2. Z-score: 0.0. IMPRESSION: Osteopenia. FRAX 10-year Fracture Risk Major Osteoporotic Fracture: 22 percent Hip Fracture: 8.2 percent Reported Risk Factors: [place] () Neck BMD=0.618, BMI=18.1, previous fracture, alcohol use Dimitri Desai M.D. Diagnostic Radiologist [email or web address] [email or web address] / be/Dictated by: Dimitri Desai MD @ 09/18/2023 3:00:00 PM (Electronically Signed)
== END 2023-09-18 12:55 | disposition home or self-care (01) ==
LOC: RAD 12:55
PROVIDERS: PCP Family Medicine; Visit Provider Family Medicine
DX: Z78.0 Asymptomatic menopausal state (principal); M85.89 Other specified disorders of bone density and structure, multiple sites
CPT/HCPCS: 77080

== ENCOUNTER 2023-10-04 10:49 | Outpatient (CLI) | payer MEDICARE, OTHER, SELFPAY | END 2023-10-04 10:50 | disposition home or self-care (01) | LOC: RAD 10:50 | PROVIDERS: PCP Family Medicine; Visit Provider Family Medicine | DX: R07.89 Other chest pain (principal) | CPT/HCPCS: 93306 ==

== ENCOUNTER 2023-11-05 10:08 | Outpatient (CLI) | payer MEDICARE, OTHER, SELFPAY ==
--- OUTSIDE RECORDS SUMMARY | 2023-11-07 13:27 | XMS_ITS | Clinical Summary ---
Author Name Unknown Organization [employer] [facility] Address [place], [place] [address] Care Team Providers Care Agronomy Supervisor Name Role Phone Alejandro Austin MD Primary Care Provider [phone] Allergies Active Allergy Reactions Criticality Noted Date Comments Cefdinir Angioedema High 11/11/2017 Codeine Dizziness High 12/25/2006 Egg Hives High 08/21/2013 Fentanyl Anaphylaxis,Vomiting High 03/26/2018 Medications Medication Sig Dispensed Refills Start Date End Date Status fluticasone (50 mcg per actuation) nasal solution (FLONASE)Indications: Allergic rhinitis Inhale 1 [place] in the nostril(s) 2 times daily. PRN 1 Bottle 0 08/10/2013 Active cholecalciferol, Vitamin D3, (VITAMIN D-3) 5,000 unit tab tablet Take by mouth once daily. 0 08/16/2020 Active durable medical equipment (DME)Indications:Clos ed nondisplaced fracture of fifth metacarpal bone of right hand, unspecified portion of metacarpal, initial encounter TKO RT 1 Each 0 03/17/2022 Active clotrimazole-betameth asone cream (LOTRISONE) 1-0.05 % creamIndications:Derm atitis Apply topically to affected area(s) two times daily. 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 15 Patch 0 06/08/2023 Active albuterol HFA (PRO-AIR; VENTOLIN; PROVENTIL) 90 mcg/actuation inhalerIndications:SO B (shortness of breath) Inhale 1-2 Puffs by mouth every 4 hours if needed for Shortness Of Breath. 1 Each 0 06/19/2023 Active LORazepam (ATIVAN) 1 mg tabletIndications:Anx iety Take 1 Tablet (1 mg) by mouth every 6 hours if needed for Anxiety. 15 Tablet 0 06/24/2023 Active albuterol-ipratropium (DUONEB) (2.5-0.5 mg) in 3 mL NEBULIZATION solutionIndications:C OPD exacerbation (HC) Inhale 3 mL via a nebulizer every 6 hours if needed for Shortness Of Breath or Wheezing. 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 [address] [place] [address] 2 scans: (2-Ord) ECHO TTE COMPLETE WO CONTRAST ([id number]) 10/04/2023 Travel from Last 3 Months Immunizations Name Administration Dates Next Due COVID-19 vaccine (Abril 30mcg/0.3mL) P F MDDave 01/24/2021,01/03/2021 Tuberculin (PPD) 12/04/2006 Family History Medical History Relation Name Comments No Known Problems Brother No Known Problems Daughter No Known Problems Father No Known Problems Half-Brother No Known Problems Half-Sister No Known Problems Maternal Aunt No Known Problems Maternal Grandfather No Known Problems Maternal Grandmother No Known Problems Maternal Uncle No Known Problems Mother No Known Problems Other No Known Problems Paternal Aunt No Known Problems Paternal Grandfather No Known Problems Paternal Grandmother No Known Problems Paternal Uncle No Known Problems Sister No Known Problems Son Cancer-breast No Family History Relation Name Status Comments Brother Daughter Father Half-Brother Half-Sister Maternal Aunt Maternal Grandfather Maternal Grandmother Maternal Uncle Mother Other Paternal Aunt Paternal Grandfather Paternal Grandmother Paternal Uncle Sister Son Social History Tobacco Use Types Packs/Day Years Used Date Smoking Tobacco: Former Cigarettes 1 15 0 10/14/2002 - 10/14/2017 Smokeless Tobacco: Never Tobacco Cessation:Counseling Given: Not Answered Alcohol Use Standard Drinks/Week Comments Not Currently 0 (1 standard drink = 0.6 oz pur e alcohol) PHQ-2 Answer Date Recorded PHQ-2 TOTAL SCORE 0 11/20/2021 Social Connections Answer Date Recorded Frequency of Communication with Friends and Fami ly 4 04/19/2023 Financial Resource Strain Answer Date R ecorded Difficulty of Paying Living Expenses 3 04/19/2023 Difficulty of Paying Living Expenses Not on file 04/19/2023 Food Insecurity Answer Date Recorded Worried About Running Out of Food in the Last Ye ar 1 04/19/2023 Transportation Needs Answer Date Record ed Lack of Transportation (Medical) 1 04/19/2023 Housing Stability Answer Date Recorded Unable to Pay for Housing in the Last Year 1 04/19/2023 Sex and Gender Information Value Date Recorded Sex Assigned at Not on file Gender Identity Not on file Sexual Orientation Not on file Obstetrics History Para Term AB IAB SAB Ectopic Multiple Livin g Live Births 0 0 0 0 0 0 0 0 0 0 0 Last Filed Vital Signs Vital Sign Reading Time Taken Comments Blood Pressure 150/86 06/24/2023 2:24 PM CDT Pulse 50 06/24/2023 2:24 PM CDT Temperature 36.5 ??C (97.7 ??F) 06/08/2023 3:12 AM CD T Respiratory Rate 16 06/08/2023 3:12 AM CDT Oxygen Saturation 95% 06/24/2023 2:24 PM CDT Inhaled Oxygen Concentration - - Weight 48.9 kg (107 lb 12.8 oz) 06/24/2023 2:24 PM CDT Height 170.2 cm (5' 7) 06/24/2023 2:24 PM CDT Body Mass Index 16.88 06/24/2023 2:24 PM CDT Plan of Treatment Health Maintenance Due Date Last Done Comments Pneumococcal series for age 65+ (1 of 2 - PCV) 1946 Tdap 1951 Zoster (shingles) series for age 50+ (1 of 2) 1959 Tetanus booster 1960 Medicare Wellness for age 65+ 02/27/2022 02/27/2021 Depression screening for age 12+ 11/20/2022 11/20/2021, 02/27/2021, 12/23/2020, Additional history exists COVID-19 vaccine series ( season) 2023 10/05/2021, 01/24/2021, 01/03/2021 BMI (ht and wt on same day) for age 18+ 06/24/2024 06/24/2023, 11/20/2021, 02/27/2021, Additional history exists DEXA/DXA scan for age 65+ Completed 11/02/2009 Procedures Procedure Name Priority Date/Time Associated Diagnosis Comments ECHO TTE COMPLETE WO CONTRAST Routine 10/04/2023 12:09 PM FUEL EFFICIENT AIRCRAFT DESIGNER Chest pain from Last 3 Months Results * ECHO TTE COMPLETE WO CONTRAST (10/04/2023 12:09 PM FUEL EFFICIENT AIRCRAFT DESIGNER) AORTIC VALVE MEAN PG 3 mmHg EJECTION FRACTION 66 % PEAK TR VELOCITY 1.9 m/s LVEDD 4.5 cm EJECTION FRACTION 55 - 60% Anatomical Region Laterality Modality Ultrasound 10/04/2023 11:2 0 AM FUEL EFFICIENT AIRCRAFT DESIGNER Narrative 10/04/2023 12:36 PM FUEL EFFICIENT AIRCRAFT DESIGNER ECHOCARDIOGRAM AROLDO BRODERICK ?Accession#: ?? [id number] : ?1940 83 years Study Date: ?? 10/04/2023 11:20:25 AM Gender: F ? BP: ? 150/86 mmHg Height: 163.00 cm ? BSA: ?1.51 m? ? ? Weight: 49.00 kg ?Tech: ? MTS ?Referring MD: APRIL GOMES Site: ? [facility] Reading Location: MOBILE OP Patient Location: Outpatient. Procedure: 2D, Color Doppler and Spectral Doppler. Indication for study: Chest pain Cardiac Rhythm: Regular.Study quality: Good. Final Impressions: 1. Normal LV size, normal wall thickness, normal function with an estimated EF of 55 - 60%. 2. Right ventricular cavity size is normal, global systolic RV function is normal. 3. No significant valve disease detected. 4. Rhythm is sinus bradycardia 40bpm. Comparison There are no prior studies on this patient for comparison purposes. Chamber Sizes and Function Normal left ventricular size, normal wall thickness, normal global systolic function with an estimated EF of 55 - 60%. Left atrial size is normal. Left atrial pressure is normal. Right ventricular cavity size is normal, global systolic RV function is normal. The right atrium is normal. Right atrial volume index is 17 ml/m? ? ?. Right atrial area is 12 cm? ? ?. The pulmonary artery is of normal size and origin. The sinus of Valsalva is normal sized. The ascending aorta is normal sized. Valves, RV Pressures and Diastolic Function The aortic valve is normal in structure and trileaflet, no stenosis and no regurgitation. The mitral valve is normal in structure, no mitral regurgitation. Normal diastolic function. The tricuspid valve is normal in structure. Tricuspid regurgitation is trace regurgitation. The tricuspid regurgitant velocity is 1.9 m/s, the estimated right ventricular systolic pressure is 14 mmHg plus right atrial pressure. The pulmonic valve is normal. Trace pulmonary regurgitation. Pulmonary veins show a normal flow pattern. Masses, Effusion, Shunts There is no pericardial effusion. The inferior vena cava is normal sized, respiratory size variation greater than 50%. No left to right shunting was detected by limited color flow Doppler interrogation of the interatrial septum. No masses or clots seen. MEASUREMENTS AND CALCULATIONS 2-D Measurements and LV Function: LVID (d) 4.5 cm LV FS% (2D) ?? 39 % LVID (s) 2.8 cm LVOT diameter 1.9 cm IVS (d) ??0.8 cm HR ?37 bpm LVPW (d) 1.0 cm LA Vol index ??29 ml/m2 Ao Sinus 3.7 cm RA Vol index ??17 ml/m2 Asc Ao ?? 3.8 cm RA area ? 12 cm?RV Max 4C (d) 3.3 cm Diastology: Mitral ?Tissue Doppler ?Pulmonary veins E Peak 0.5 m/s ??e', Septum ? 0.05 m/s Pulm s ?61.5 cm/s A Peak 0.7 m/s ??e', Lateral ?0.09 m/s Pulm d ?72.6 cm/s E/A ?0.7 ?E/e' Average ?? 7.24 ? Pulm s/d ratio ??0.85 DT ? 243 msec Aortic Valve: Vmax ? 1.2 m/s ??FABIANA (V) ?? 2.10 cm? ? ? VTI ?0.31 m ?? FABIANA (I) ?? 1.86 cm? ? ? LVOT V max 0.8 m/s ??Max PG ?5 mmHg LVOT VTI ?? 0.19 m ?? Mean PG ?? 3 mmHg SV ? 57 ml ?Dim Index 0.63 SV index ?? 38 ml/m? ? ? CO ?2.1 l/min ?CI ?1.4 l/min/m? ? ? Mitral Valve: MVA ?3.1 cm? ? ? MV P 1/2 70 msec Tricuspid Valve and estimated PA pressures: TR Vmax 1.9 m/s TAPSE 2.0 cm TR maxG 14 mmHg . This study was interpreted by an [facility] accredited facility. CC: HIM (med records) [facility]. ??Final ?? Procedure Note Demetrius Larson MD - 10/04/2023 ECHOCARDIOGRAM AROLDO BRODERICK : 1940 83 years Study Date: 10/04/2023 11:20:25 AM Gender: F BP: 150/86 mmHg Height: 163.00 cm BSA: 1.51 m? ? ? Weight: 49.00 kg Tech: [facility] Referring MD: APRIL GOMES Site: [facility] Reading Location: MOBILE OP Patient Location: Outpatient. Procedure: 2D, Color Doppler and Spectral Doppler. Indication for study: Chest pain Cardiac Rhythm: Regular.Study quality: Good. Final Impressions: 1. Normal LV size, normal wall thickness, normal function with anestimated EF of 55 - 60%. 2. Right ventricular cavity size is normal, global systolic RV functionis normal. 3. No significant valve disease detected. 4. Rhythm is sinus bradycardia 40bpm. Comparison There are no prior studies on this patient for comparison purposes. Chamber Sizes and Function Normal left ventricular size, normal wall thickness, normal globalsystolic function with an estimated EF of 55 - 60%. Left atrial size isnormal. Left atrial pressure is normal. Right ventricular cavity size isnormal, global systolic RV function is normal. The right atrium is normal.Right atrial volume index is 17 ml/m? ? ?. Right atrial area is 12 cm? ? ?. Thepulmonary artery is of normal size and origin. The sinus of Valsalva isnormal sized. The ascending aorta is normal sized. Valves, RV Pressures and Diastolic Function The aortic valve is normal in structure and trileaflet, no stenosis and noregurgitation. The mitral valve is normal in structure, no mitralregurgitation. Normal diastolic function. The tricuspid valve is normal instructure. Tricuspid regurgitation is trace regurgitation. The tricuspidregurgitant velocity is 1.9 m/s, the estimated right ventricular systolicpressure is 14 mmHg plus right atrial pressure. The pulmonic valve isnormal. Trace pulmonary regurgitation. Pulmonary veins show a normal flowpattern. Masses, Effusion, Shunts There is no pericardial effusion. The inferior vena cava is normal sized,respiratory size variation greater than 50%. No left to right shunting wasdetected by limited color flow Doppler interrogation of the interatrialseptum. No masses or clots seen. MEASUREMENTS AND CALCULATIONS 2-D Measurements and LV Function: LVID (d) 4.5 cm LV FS% (2D) 39 % LVID (s) 2.8 cm LVOT diameter 1.9 cm IVS (d) 0.8 cm HR 37 bpm LVPW (d) 1.0 cm LA Vol index 29 ml/m2 Ao Sinus 3.7 cm RA Vol index 17 ml/m2 Asc Ao 3.8 cm RA area 12 cm? ? ? RV Max 4C (d) 3.3 cm Diastology: Mitral Tissue Doppler Pulmonary veins E Peak 0.5 m/s e', Septum 0.05 m/s Pulm s 61.5 cm/s A Peak 0.7 m/s e', Lateral 0.09 m/s Pulm d 72.6 cm/s E/A 0.7 E/e' Average 7.24 Pulm s/d ratio 0.85 DT 243 msec Aortic Valve: Vmax 1.2 m/s FABIANA (V) 2.10 cm? ? ? VTI 0.31 m FABIANA (I) 1.86 cm? ? ? LVOT V max 0.8 m/s Max PG 5 mmHg LVOT VTI 0.19 m Mean PG 3 mmHg SV 57 ml Dim Index 0.63 SV index 38 ml/m? ? ? CO 2.1 l/min CI 1.4 l/min/m? ? ? Mitral Valve: MVA 3.1 cm? ? ? MV P 1/2 70 msec Tricuspid Valve and estimated PA pressures: TR Vmax 1.9 m/s TAPSE 2.0 cm TR maxG 14 mmHg . This study was interpreted by an [facility] accredited facility. CC: HIM (med records) [facility]. Final April Gomes MD ECHO ORD from Last 3 Months Insurance Payer Benefit Plan / Group Subscriber ID Effective Dates Phone Address Type WC WORKERS COMP WC STATE AUTO [id number] 2017-P rese nt [address] [place] [address] MEDICARE PART B - HB USE ONLY MEDICARE PART B HB ONLY [id number] 2005-Prese nt ATTN: CLAIMS [address] [place] [address] MEDICARE PART A - HB USE ONLY MEDICARE PART A HB ONLY [id number] 2005-Prese nt ATTN: CLAIMS [address] [place] [address] MEDICARE PART B - HB USE ONLY MEDICARE PART B HB ONLY [id number] 2014-Prese nt ATTN: CLAIMS [address] [place] [address] MEDICARE - PB USE ONLY MEDICARE PB ONLY [id number] 2005-Prese nt ATTN: CLAIMS [address] [place] [address] [id number] 2008-08/03 [facility] ATTN: CLAIMS [address] [address] [place] [address] [id number] 2002-Presen t [facility] ATTN: CLAIMS [address] [address] [place] [address] Advance Directives Latest Code Status on File Code Status Date Activated Date Inactivated Comments Full Code 01/20/2018 9:37 AM 01/21/2018 12:14 PM Care Teams Agronomy Supervisor Relationship Specialty Start Date End Date Alejandro Austin MD [address] [facility] [place] [id number] PCP - General Family Practice 09/27/20
== END 2023-11-05 10:09 | disposition home or self-care (01) ==
LOC: NFLDREF 11-07 13:25
PROVIDERS: PCP Family Medicine; Referring Provider Family Medicine; Visit Provider Family Medicine
DX: R17 Unspecified jaundice (principal); D72.829 Elevated white blood cell count, unspecified; E55.9 Vitamin D deficiency, unspecified; E78.5 Hyperlipidemia, unspecified
CPT/HCPCS: 80053; 80061; 80076; 82306

== ENCOUNTER 2023-11-08 15:53 | Outpatient (CLI) | payer MEDICARE, OTHER, SELFPAY ==
--- OUTSIDE RECORDS SUMMARY | 2023-11-13 11:59 | XMS_ITS | Clinical Summary ---
Author Name Unknown Organization [employer] [facility] Address [place], [place] [address] Care Team Providers Care Publicist Name Role Phone Alejandro Austin MD Primary Care Provider [phone]- [phone] Allergies Active Allergy Reactions Criticality Noted Date Comments Cefdinir Angioedema High 11/11/2017 Codeine Dizziness High 12/25/2006 Egg Hives High 08/21/2013 Fentanyl Anaphylaxis,Vomiting High 03/26/2018 Medications Medication Sig Dispensed Refills Start Date End Date Status fluticasone (50 mcg per actuation) nasal solution (FLONASE)Indications: Allergic rhinitis Inhale 1 [place] in the nostril(s) 2 times daily. PRN [...] Department Care Team Description 10/04/2023 11:00 AM BAGGAGE SMASHER Orders Only [facility] [address] [place] [address] 2 scans: (2-Ord) ECHO TTE COMPLETE WO CONTRAST ([id number]) 10/04/2023 Travel from Last 3 Months Immunizations Name Administration Dates Next Due COVID-19 vaccine ([place] 30mcg/0.3mL) P F MDDave 01/24/2021,01/03/2021 Tuberculin (PPD) [...] 06/24/2023 2:24 PM CDT Plan of Treatment Upcoming Encounters Date Type Department Care Team (Late st Contact Info) Description 11/15/2023 11:30 AM BAGGAGE SMASHER Office Visit [facility] [address] [place] [address] Santos Arias MD [address] [place] [address] Health Maintenance Due Date Last Done Comments [...] COMPLETE WO CONTRAST Routine 10/04/2023 12:09 PM BAGGAGE SMASHER Chest pain from Last 3 Months Results * ECHO TTE COMPLETE WO CONTRAST (10/04/2023 12:09 PM BAGGAGE SMASHER) AORTIC VALVE MEAN PG 3 mmHg EJECTION FRACTION 66 % PEAK TR VELOCITY 1.9 m/s LVEDD 4.5 cm EJECTION FRACTION 55 - 60% Anatomical Region Laterality Modality Ultrasound 10/04/2023 11:2 0 AM BAGGAGE SMASHER Narrative 10/04/2023 12:36 PM BAGGAGE SMASHER ECHOCARDIOGRAM AROLDO BRODERICK ?Accession#: ?? [id number] : ?1940 83 years Study Date: ?? 10/04/2023 11:20:25 AM Gender: F ? BP: ? 150/86 mmHg Height: 163.00 cm ? BSA: ?1.51 m? ? ? Weight: 49.00 kg ?Tech: ? MTS ?Referring MD: APRIL GOMES Site: ? [facility] Reading Location: MOBILE OP Patient Location: [...] . This study was interpreted by an [facility] accredited facility. CC: HIM (med [facility]) [facility]. ??Final ?? Procedure Note Demetrius Larson MD - 10/04/2023 ECHOCARDIOGRAM AROLDO BRODERICK : 1940 83 years Study Date: 10/04/2023 11:20:25 AM Gender: F BP: 150/86 mmHg Height: 163.00 cm BSA: 1.51 m? ? ? Weight: 49.00 kg Tech: [facility] Referring MD: APRIL GOMES Site: [facility] Reading Location: MOBILE OP Patient [...] [facility] accredited facility. CC: HIM (med records) [facility]. Final April Gomes MD ECHO ORD from Last 3 Months Insurance Payer Benefit Plan / Group Subscriber ID Effective Dates Phone Address Type WC WORKERS COMP WC STATE AUTO [id number] 2017-P rese nt [address] [place] [address] MEDICARE PART B - HB USE ONLY MEDICARE PART B HB ONLY [id number] 2005-Prese nt ATTN: CLAIMS [address] [place] [id number] MEDICARE PART A - HB USE ONLY MEDICARE PART A HB ONLY [id number] 2005-Prese nt ATTN: CLAIMS [address] MEDICARE PART B - HB USE ONLY MEDICARE PART B HB ONLY [id number] 2014-Prese nt ATTN: CLAIMS [address] [place] [address] MEDICARE - PB USE ONLY MEDICARE PB ONLY [id number] 2005-Prese nt ATTN: CLAIMS [address] [id number] 2008-08/03 [facility] ATTN: CLAIMS [address] [address] [place] [address] [id number] 2002-Preskatherine t [facility] ATTN: CLAIMS [address] [address] [place] [address] Advance Directives Latest Code Status on File Code Status Date Activated Date Inactivated Comments Full Code 01/20/2018 9:37 AM 01/21/2018 12:14 PM Care Teams Publicist Relationship Specialty Start Date End Date Alejandro Austin MD [address] [facility] [place] [id number] PCP - General Family Practice 09/27/20
== END 2023-11-08 15:54 | disposition home or self-care (01) ==
LOC: NFLDREF 11-13 11:45
PROVIDERS: PCP Family Medicine; Referring Provider Family Medicine; Visit Provider Nurse Practitioner Family
DX: R30.0 Dysuria (principal); M85.80 Other specified disorders of bone density and structure, unspecified site; N30.00 Acute cystitis without hematuria
CPT/HCPCS: 87086; 87186

== ENCOUNTER 2024-03-13 10:00 | Outpatient (CLI) | payer MEDICARE, OTHER, SELFPAY ==
--- OUTSIDE RECORDS SUMMARY | 2024-03-13 10:04 | XMS_ITS | Clinical Summary ---
Author Organization [facility] Address [place], [place] [address] Care Team Providers Care Access Registrar Name Role Phone Alejandro Austin MD Primary Care Provider [phone] Allergies Active Allergy Reactions Criticality Noted Date Comments Cefdinir Angioedema High 11/11/2017 Codeine Dizziness High 12/25/2006 Egg Hives High 08/21/2013 Fentanyl Anaphylaxis,Vomiting High 03/26/2018 Medications Medication Sig Dispensed Refills Start Date End Date Status fluticasone (50 mcg per actuation) nasal solution (FLONASE)Indications: Allergic rhinitis Inhale 1 [place] in the nostril(s) 2 times daily. PRN 1 Bottle prn 08/10/2013 Active cholecalciferol, Vitamin D3, (VITAMIN D-3) 5,000 unit tab tablet Take by mouth once daily. 0 08/16/2020 Active durable medical equipment (DME)Indications:Clos ed nondisplaced fracture of fifth metacarpal bone of right hand, unspecified portion of metacarpal, initial encounter TKO RT 1 Each 03/17/2022 Active clotrimazole-betameth asone cream (LOTRISONE) 1-0.05 [...] MCG) BY MOUTH BEFORE BREAKFAST 90 Tablet 05/27/2023 Active lidocaine 5 % topical patchIndications:Cont usion of left chest wall, initial encounter Apply to intact skin to cover most painful area for max 12hr per 24hr period. 15 Patch 06/08/2023 Active albuterol HFA (PRO-AIR; VENTOLIN; PROVENTIL) 90 mcg/actuation inhalerIndications:SO B (shortness of breath) Inhale 1-2 Puffs by mouth every 4 hours if needed for Shortness Of Breath. 1 Each 06/19/2023 Active LORazepam (ATIVAN) 1 mg tabletIndications:Anx iety Take 1 Tablet (1 mg) by mouth every 6 hours if needed for Anxiety. 15 Tablet 06/24/2023 Active albuterol-ipratropium (DUONEB) (2.5-0.5 mg) in 3 mL NEBULIZATION solutionIndications:C OPD exacerbation (HC) Inhale 3 mL via a nebulizer every 6 hours if needed for Shortness Of Breath or Wheezing. 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, medullary carcinoma 04/09/2018 Vitamin D deficiency 04/09/2018 Sensorineural hearing loss, bilateral 07/01/2015 Bilateral tinnitus 07/01/2015 Gout, unspecified 01/28/2008 Thyroid nodule Encounters Date Type Department Care Team Description 03/06/2024 Orders Only [facility] [address] [place] [address] Sara Moss 1 scan: (1-Ord) Final Zio report 02/27/2024 1:00 PM CDT Office Visit [facility] [address] [place], [place] [id number] Derrell Gee MD from Last 3 Months Immunizations Name Administration Dates Next Due COVID-19 vaccine (The Poshpacker 30mcg/0.3mL) DAPHNEY Woodall 01/24/2021,01/03/2021 Tuberculin (PPD) 12/04/2006 Family History Medical [...] booster 1960 Medicare Wellness for age 65+ 02/28/2022 02/27/2021 Depression screening for age 12+ 11/20/2022 11/20/2021, 02/27/2021, 12/23/2020, Additional history exists COVID-19 vaccine series ( season) 2023 10/05/2021, 01/24/2021, 01/03/2021 BMI (ht and wt on same day) for age 18+ 06/24/2024 06/24/2023, 11/20/2021, 02/27/2021, Additional history exists DEXA/DXA scan for age 65+ Completed 11/02/2009 Procedures Procedure Name Priority Date/Time Associated Diagnosis Comments EXTENDED HOLTER Routine 02/27/2024 Bradycardia XR DXA BONE DENSITY 2 SITES AXIAL Routine 11/02/2009 2:53 PM INSTRUCTIONAL MATERIALS DIRECTOR Special Screening for Osteoporosis from Last 3 Months or Most Recently Relevant to Health Maintenance Results * EXTENDED HOLTER (02/27/2024) Derrell Gee MD CARDIAC SERVICES ORD * (ABNORMAL) XR DEXA BONE DENSITY 2 SITES (11/02/2009 2:53 PM INSTRUCTIONAL MATERIALS DIRECTOR) Anatomical Region Laterality Modality Spine, HIPS, HIPL, HIPR Bone Den sitometry 11/02/2009 2:53 PM INSTRUCTIONAL MATERIALS DIRECTOR Narrative 11/02/2009 12:14 PM INSTRUCTIONAL MATERIALS DIRECTOR Please see scanned document for results of this study. Procedure Note April Suarez - 11/04/2009 Please see scanned document for results of this study. Zeus PRESCOTT from Last 3 Months or Most Recently Relevant to Health Maintenance Insurance Payer Benefit Plan / Group Subscriber ID Effective Dates Phone Address Type WC WORKERS COMP WC STATE AUTO [id number] 2017-P rese nt [address] [place] [address] MEDICARE PART B - HB USE ONLY MEDICARE PART B HB ONLY [id number] 2005-Prese nt ATTN: CLAIMS [address] [place] [address] MEDICARE PART A - HB USE ONLY MEDICARE PART A HB ONLY [id number] 2005-Prese nt ATTN: CLAIMS [address] [place] [address] MEDICARE PART B - HB USE ONLY MEDICARE PART B HB ONLY [id number] 2014-Prese nt ATTN: CLAIMS [address] [place] [address] MEDICARE - PB USE ONLY MEDICARE PB ONLY [id number] 2005-Prese nt ATTN: CLAIMS [address] [id number] 2008-08/03 [facility] OFFICE OF COMMUNITY CARE ATTN: CLAIMS [address] [address] [place] [address] [id number] 2002-Presen t [facility] OFFICE OF COMMUNITY CARE ATTN: CLAIMS [address] [address] [place] [address] Advance Directives * Full Code (Latest Code Status on File) Date Activated Date Inactivated Comments 01/20/2018 9:37 AM 01/21/2018 12:14 PM Care Teams Access Registrar Relationship Specialty Start Date End Date Alejandro Austin MD [address] [place] [address] PCP - General Family Practice 09/27/20
== END 2024-03-13 10:01 | disposition home or self-care (01) ==
LOC: NFLDREF 10:00
PROVIDERS: PCP Family Medicine; Visit Provider Family Medicine
DX: E03.9 Hypothyroidism, unspecified (principal); E89.0 Postprocedural hypothyroidism; E55.9 Vitamin D deficiency, unspecified
CPT/HCPCS: 84443

== ENCOUNTER 2024-12-25 09:53 | Outpatient (CLI) | payer MEDICARE, OTHER, SELFPAY | END 2024-12-25 09:54 | disposition home or self-care (01) | LOC: NFLDREF 12-28 03:42 | PROVIDERS: PCP Family Medicine; Referring Provider Family Medicine; Visit Provider Family Medicine | DX: E03.9 Hypothyroidism, unspecified (principal); E78.5 Hyperlipidemia, unspecified; E55.9 Vitamin D deficiency, unspecified; E89.0 Postprocedural hypothyroidism; M85.89 Other specified disorders of bone density and structure, multiple sites; E05.80 Other thyrotoxicosis without thyrotoxic crisis or storm | CPT/HCPCS: 80053; 80061; 82043; 82306; 82570; 84439; 84443 ==

== ENCOUNTER 2024-12-29 13:51 | Outpatient (CLI) | payer MEDICARE, OTHER, SELFPAY | END 2024-12-29 13:52 | disposition home or self-care (01) | LOC: NFLDREF 13:52 | PROVIDERS: PCP Family Medicine; Visit Provider Family Medicine | DX: E05.80 Other thyrotoxicosis without thyrotoxic crisis or storm (principal) | CPT/HCPCS: 84439; 84443 ==

== ENCOUNTER 2025-02-19 10:51 | Outpatient (CLI) | payer MEDICARE, OTHER, SELFPAY | END 2025-02-19 10:52 | disposition home or self-care (01) | LOC: NFLDREF 02-20 11:31 | PROVIDERS: PCP Family Medicine; Referring Provider Family Medicine; Visit Provider Family Medicine | DX: E89.0 Postprocedural hypothyroidism (principal); E05.80 Other thyrotoxicosis without thyrotoxic crisis or storm | CPT/HCPCS: 84443 ==

== ENCOUNTER 2025-05-31 10:00 | Outpatient (CLI) | payer MEDICARE, OTHER, SELFPAY | END 2025-05-31 10:01 | disposition home or self-care (01) | LOC: NFLDREF 06-03 09:50 | PROVIDERS: PCP Family Medicine; Referring Provider Family Medicine; Visit Provider Family Medicine | DX: E89.0 Postprocedural hypothyroidism (principal); E05.80 Other thyrotoxicosis without thyrotoxic crisis or storm | CPT/HCPCS: 84443 ==